=== PATIENT | male | born 1960 | race Caucasian/White ===

== ENCOUNTER 2019-06-04 09:45 | Emergency (ER) | payer BC ==
--- NOTE | 2019-06-04 10:07 | ED ---
Lower Extremity - HPI Summary HPI Summary: This patient is a 59 year old male presenting to [facility] with a chief complaint of right knee pain since last night. He says he had a skiing injury 25 years ago and he had a staph infection 10 years later. He states he sustained an injury to it last week but is unsure how. He localizes the pain to the anterior knee. He states there is erythema and swelling. He denies fever and states he had chills last night. He rates his pain 4/10 in severity. He states he had an infection in his right hand 2 months ago. - History of Current Complaint Chief Complaint: EDExtremityLower Stated Complaint: POSS RT KNEE INF PER PT Time Seen by Provider: 06/04/19 09:54 Hx Obtained From: Patient Onset of Pain: Days Pain Intensity: 4 Pain Scale Used: 0-10 Numeric Associated Signs And Symptoms: Positive: Swelling, Redness. Negative: Fever - Allergies/Home Medications Allergies/Adverse Reactions: Allergies Allergy/AdvReac Type Severity Reaction Status Date / Time No Known Allergies Allergy Verified 06/04/19 09:50 PMH/Surg Hx/FS Hx/Imm Hx Endocrine/Hematology History: Denies: Hx Diabetes Cardiovascular History: Denies: Hx Cardiac Arrest Infectious Disease History: No Infectious Disease History: Denies: Traveled Outside the [place] in Last 30 Days - Family History Known Family History: Positive: Cardiac Disease - Social History Alcohol Use: None Substance Use Type: Reports: Marijuana Smoking Status (MU): Never Smoked Tobacco Review of Systems Positive: Chills. Negative: Fever Positive: Edema, Other - Erythema right knee All Other Systems Reviewed And Are Negative: Yes Physical Exam - Summary Physical Exam Summary: Constitutional: Well-developed, Well-nourished, Alert. (-) Distressed Skin: Warm, Dry. Erythema to the anterior right knee. HENT: Normocephalic; Atraumatic Eyes: Conjunctiva normal Neck: Musculoskeletal ROM normal neck. (-) JVD, (-) Stridor, (-) Nuchal rigidity Cardio: Rhythm regular, rate normal, Heart sounds normal; Intact distal pulses; Radial pulses are 2+ and symmetric. (-) Murmur Pulmonary/Chest wall: Effort normal. (-) Respiratory distress, (-) Wheezes, (-) Rales Abd: Soft, (-) tenderness, (-) Distension, (-) Guarding, (-) Rebound Musculoskeletal: Diffuse swelling and effusion of the right knee with full ROM. Lymph: (-) Cervical adenopathy Neuro: Alert, Oriented x3 Psych: Mood and affect Normal Triage Information Reviewed: Yes Vital Signs On Initial Exam: Initial Vitals Temp Pulse Resp BP Pulse Ox 98.8 F 62 14 153/100 95 06/04/19 09:46 06/04/19 09:46 06/04/19 09:46 06/04/19 09:46 06/04/19 09:46 Vital Signs Reviewed: Yes Procedures - Procedure Summary Procedure Summary: PROCEDURE NOTE ARTHROCENTESIS Indiciations: Knee pain and swelling rule out septic joint Relative Contraindications: no Anesthesia: Local Ultrasound guidance: no Procedure: Risks and benefits of the procedure explained to the patient and consent was obtained. Using sterile technique the knee was prepped and draped. 5ccs of Lidocaine 1% plain was used as local anesthetic. The joint was entered both medially and laterally distal to the area of erythema. Unable to obtain any fluid. After procedure was concluded patient had vasovagal syncope but recovered well. Diagnostics - Vital Signs Vital Signs Temp Pulse Resp BP Pulse Ox 06/04/19 09:46 98.8 F 62 14 153/100 95 - Laboratory Result Diagrams: 06/04/19 10:19 06/04/19 10:19 Lab Statement: Any lab studies that have been ordered have been reviewed, and results considered in the medical decision making process. - Radiology Knee XR Radiology Interpretation Completed By: Radiologist Summary of Radiographic Findings: Moderate prepatellar soft tissue swelling with no joint effusion, fracture, or traumatic malalignment. ED Provider has reviewed this report. - EKG 1144 Cardiac Rate: Bradycardia - 56 BPM EKG Rhythm: Sinus Bradycardia Summary of EKG Findings: An EKG at 1144 reveals sinus bradycardia (56 BPM), nml axis, nml intervals. No STEMI. No acute changes Re-Evaluation - Re-Evaluation First Eval Comment: Patient vasovagal syncope after seeing the needle postprocedure. Attempted arthrocentesis distal to the area of erythema, no fluid obtained, suspect that there is a not a large joint effusion to tap. Second Eval Change: Improved - Patient states that he feels well, does not have any chest pain, EKG is sinus bradycardia. Patient's blood pressure back up to 130 systolic. Patient advised to return for worsening symptoms including fevers, increased pain in the knee or decreased range of motion, chest pain, syncope or if he is concerned. We'll send him on Keflex 4 times a day for cellulitis Lower Extremity Course/Dx - Course Course Of Treatment: 59 year old male w R knee pain for one week after trauma. - Exam with an erythematous right knee, full range of motion. No obvious effusion and diffuse swelling. Check an x-ray, CBC CMP and CRP. Plan for arthrocentesis to rule out septic joint, lower suspicion given full range of motion. DDx also includes trauma, lyme, inflammatory - Diagnoses Provider Diagnoses: Cellulitis, Vasovagal syncope Discharge - Sign-Out/Discharge Documenting (check all that apply): Patient Departure - Discharge Patient Received Moderate/Deep Sedation with Procedure: No - Discharge Plan Condition: Stable Disposition: HOME Prescriptions: Cephalexin CAP* [Keflex CAP*] 500 mg PO QID 7 Days #28 cap Patient Education Materials: Cellulitis (ED), Knee Pain (ED) Referrals: Armand Mclaughlin MD [Primary Care Provider] - Additional Instructions: You were seen in the emergency department for pain and redness. We are unable to get any fluid from the knee. We will treat you for cellulitis. If you have worsening pain, fevers, trouble with moving any please return to the emergency department If any studies were not completed at the time of discharge you will be called with the relevant results. Please follow up with your primary care doctor in next 2-3 days and return to emergency department for worsening or concerning symptoms. - Billing Disposition and Condition Condition: STABLE Disposition: Home - Attestation Statements Document Initiated by Norma: Yes Documenting Scribe: Anthony Murdock Provider For Whom Norma is Documenting (Include Credential): Doreen Nix MD Scribe Attestation: Anthony Howell, scribed for Doreen Nix MD on 06/04/19 at 1223. Scribe Documentation Reviewed: Yes Provider Attestation: The documentation as recorded by the Anthony reynoso accurately reflects the service I personally performed and the decisions made by , Doreen Nix MD Status of Scribe Document: Viewed
[2019-06-04] MEDS ORDERED: Lidocaine 1% INJ* 10 MG/ML 30 ML SDV INJ ONE (10:12)
[2019-06-04 10:25] LABS: ABS Basophils 0.1 10^3/ul (0-0.2); ABS Eosinophils 0.1 10^3/ul (0-0.6); ABS Lymphocytes 2.1 10^3/ul (1.0-4.8); ABS Neutrophils 6.6 10^3/ul (1.5-7.7); Hematocrit 41 % (42-52); Hemoglobin 14.3 g/dL (14.0-18.0); Lymphocyte % 21.6 %; Mean Corpuscular HGB Conc 35 g/dL (31-36); Mean Corpuscular Hemoglobin 34 pg (27-31); Mean Corpuscular Volume 96 fL (80-94); Mean Platelet Volume 6.8 fL (7.4-10.4); Nucleated Red Blood Cells % 0.1; Platelet Count 256 10^3/uL (150-450); Red Blood Count 4.27 10^6 /uL (4.18-5.48); Red Cell Distribution Width 13 % (10-15); White Blood Count 9.9 10^3/uL (3.5-10.8)
[2019-06-04 10:31] LABS: INR 1.07 (0.82-1.09)
[2019-06-04 10:45] LABS: Albumin 4.2 g/dL (3.2-5.2); Albumin/Globulin Ratio 1.5 (1-3); BUN/Creatinine Ratio 23.9 (8-20); C Reactive Protein 12.54 mg/L (<8.01); Calcium 9.2 mg/dL (8.6-10.3); EGFR Non-African American 89.3 (>60); Globulin 2.8 g/dL (2-4); Potassium 4.1 mmol/L (3.5-5.0); Total Bilirubin 0.5 mg/dL (0.2-1.0)
[2019-06-04] MEDS ORDERED: Cephalexin CAP* 500 MG PO ONE (11:53)
[2019-06-04 12:30] VITALS: BP 136/89
== END 2019-06-04 12:29 | disposition home or self-care (01) ==
LOC: ED 09:45
DX: L03.115 Cellulitis of right lower limb (principal); R55 Syncope and collapse
CPT/HCPCS: 36415; 80053; 85025; 85610; 86140; 93005; 96372; 99282; A9270-GY